=== PATIENT | male | born 1990 | race Two or more races ===

== ENCOUNTER 2019-04-19 01:50 | Emergency (ER) | payer OTHER ==
[~2019-04-19] VITALS: Ht 195.6 cm; Wt 145.1 kg
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
--- NOTE | 2019-04-19 01:52 | NUR ---
DR. COSTA AT BEDSIDE FOR EVALUATION
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
[2019-04-19] MEDS ORDERED: LIDOCAINE 2%-EPI 1:100,000 30 ML VIAL ONE (01:57)
--- NOTE | 2019-04-19 01:57 | NUR ---
[facility] SET UP AT BEDSIDE FOR REPAIR
[2019-04-19] MEDS ORDERED: GELATIN SPONGE,ABSORBABLE 1 SPONGE SPONGE TP ONE (02:09)
--- NOTE | 2019-04-19 02:13 | NUR ---
[employer] AT BEDSIDE
--- NOTE | 2019-04-19 02:18 | NUR ---
PT BROUGHT BY RADIOLOGY TO CT
--- NOTE | 2019-04-19 02:27 | NUR ---
PT RETURNED FROM CT
[2019-04-19] MEDS ORDERED: TDAP [DIPH/PERTUSSIS/TET] 0.5 ML VIAL IM ONE ×2 (02:30→02:59)
--- NOTE | 2019-04-19 03:04 | NUR ---
CALLED [facility] FOR REPORT
[2019-04-19] MEDS ORDERED: KETOROLAC TROMETHAMINE INJ 30 MG/ML VIAL ONE (04:16)
[2019-04-19] MEDS ORDERED: KETOROLAC TROMETHAMINE INJ 60 MG/2 ML VIAL IM ONE (04:30)
--- NOTE | 2019-04-19 04:36 | NUR ---
Patient discharged to home in stable condition. Written and verbal after care instructions given. Patient verbalizes understanding of instruction.Pt ambulatory with a steady gait
[2019-04-19 04:37] VITALS: BP 137/86
== END 2019-04-19 04:37 | disposition home or self-care (01) ==
LOC: EDBD 01:56 → ER 01:56
DX: S01.01XA Laceration without foreign body of scalp, initial encounter (principal); R58 Hemorrhage, not elsewhere classified; Y08.89XA Assault by other specified means, initial encounter; Y93.89 Activity, other specified; Y92.89 Other specified places as the place of occurrence of the external cause; Y99.8 Other external cause status
CPT/HCPCS: 12011; 70450; 90471; 90715; 96372; 99291; J1885; J3490